=== PATIENT | female | born 1980 | race Caucasian/White ===

== ENCOUNTER 2019-01-12 22:13 | Emergency (ER) | payer SELFPAY ==
[~2019-01-12] VITALS: Ht 165 cm; Wt 86.0 kg
[2019-01-12] MEDS ORDERED: ASPIRIN 81 MG CHEW (CHILDREN'S ASA) PO ONE (22:30)
[2019-01-12 22:31] LABS: BASOPHILS % (AUTO) 0 % (0-10); EOSINOPHILS # (AUTO) 0.3 10^3/uL (0.0-0.3); EOSINOPHILS % (AUTO) 3 % (0-10); HEMATOCRIT 38 % (35-52); HEMOGLOBIN 13.1 G/DL (11.5-16.0); LYMPHOCYTES # (AUTO) 3.9 X 10^3 (1.0-4.0); LYMPHOCYTES % (AUTO) 36 % (12-44); MEAN CORPUSCULAR HEMOGLOBIN 31 PG (25-34); MEAN CORPUSCULAR HGB CONC 34 G/DL (32-36); MEAN CORPUSCULAR VOLUME 90 FL (80-99); MEAN PLATELET VOLUME 11.1 FL (7.4-10.4); MONOCYTES % (AUTO) 9 % (0-12); NEUTROPHILS # (AUTO) 5.7 X 10^3 (1.8-7.8); NEUTROPHILS % (AUTO) 52 % (42-75); PLATELET COUNT 330 10^3/uL (130-400); RED CELL DISTRIBUTION WIDTH 13.9 % (10.0-14.5); WHITE BLOOD COUNT 10.9 10^3/uL (4.3-11.0)
[2019-01-12] MEDS: NITROGLYCERIN 0.4 MG SL TABS BTL 25'S SL PRN ×2 (22:33→22:38)
--- NOTE | 2019-01-12 22:34 | ED Chest Pain ---
General Chief Complaint: Chest Pain Stated Complaint: CHEST PAINS Source: patient, other Exam Limitations: no limitations History of Present Illness Date Seen by Provider: Jan 12, 2019 Time Seen by Provider: 22:13 Initial Comments Patient presents to ER by private conveyance with her significant other and chief complaint of left chest pain starting about half hour prior to arrival. She had some pain in her left tooth that she took some ibuprofen and that's just proceeding her chest pain. Her pain radiates down her left shoulder with some numbness and tingling. No nausea sweats fever. No cough but she has had a recent upper respiratory tract infection with runny nose congestion. She has no previous history of coronary disease but she has a strong family history with her father having of a heart attack and her brother was 4 years old when he had a heart attack. Her last menstrual period was about 10 days ago. She has not taken anything else for it. She smokes cigarettes but has no known history of high blood pressure hyperlipidemia. She does not follow with a doctor routinely. Last time she saw was about 5-10 years ago. No history of COPD asthma or lung disease. She's not had acid reflux since he was a young kid. She did have to have a Lesia fundoplication has had no problems with it since. She rates the pain as a 6 or 7 out of 10. Allergies and Home Medications Allergies Coded Allergies: Penicillins (Verified Adverse Reaction, Unknown, vulva swelling, 01/12/19) Patient Home Medication List Home Medication List Reviewed: Yes Review of Systems Review of Systems Constitutional: No chills, No diaphoresis, No fever, No malaise EENTM: No Blurred Vision, No Double Vision Respiratory: Denies Cough, Denies Shortness of Air Cardiovascular: See HPI, Chest Pain; Denies Edema Gastrointestinal: Denies Abdomen Distended, Denies Abdominal Pain, Denies Constipated, Denies Diarrhea, Denies Nausea Genitourinary: Denies Burning, Denies Discharge Musculoskeletal: No back pain, No gout Skin: No change in color, No change in hair/nails Psychiatric/Neurological: Denies Anxiety, Denies Depressed Past Xzwteor-Hkojms-Yccgmh Hx Patient Social History Alcohol Use: Denies Use Recreational Drug Use: No Smoking Status: Current Everyday Smoker Type Used: Cigarettes Recent Foreign Travel: No Contact w/Someone Who Travel: No Physical Exam Vital Signs Vital Signs - First Documented Capillary Refill : Height, Weight, BMI Height: '" Weight: lbs. oz. kg; BMI Method: General Appearance: WD/WN, Anxious, Mild Distress HEENT: PERRL/EOMI, TMs Normal, Normal ENT Inspection, Pharynx Normal, Moist Mucous Membranes Neck: Full Range of Motion, Normal Inspection Respiratory: Chest Non Tender, Lungs Clear, Normal Breath Sounds, No Accessory Muscle Use, No Respiratory Distress Cardiovascular: Regular Rate, Rhythm, No Edema Gastrointestinal: Normal Bowel Sounds, No Organomegaly, Non Tender, Soft Extremity: Normal Capillary Refill, Normal Inspection, No Pedal Edema Neurologic/Psychiatric: Alert, Oriented x3 Skin: Normal Color, Warm/Dry Progress/Results/Core Measures Results/Orders Lab Results Laboratory Tests Test 01/12/19 22:20 01/12/19 23:02 01/13/19 01:10 Range/Units White Blood Count 10.9 4.3-11.0 10^3/uL Red Blood Count 4.25 L 4.35-5.85 10^6/uL Hemoglobin 13.1 11.5-16.0 G/DL Hematocrit 38 35-52 % Mean Corpuscular Volume 90 80-99 FL Mean Corpuscular Hemoglobin 31 25-34 PG Mean Corpuscular Hemoglobin Concent 34 32-36 G/DL Red Cell Distribution Width 13.9 10.0-14.5 % Platelet Count 330 130-400 10^3/uL Mean Platelet Volume 11.1 H 7.4-10.4 FL Neutrophils (%) (Auto) 52 42-75 % Lymphocytes (%) (Auto) 36 12-44 % Monocytes (%) (Auto) 9 0-12 % Eosinophils (%) (Auto) 3 0-10 % Basophils (%) (Auto) 0 0-10 % Neutrophils # (Auto) 5.7 1.8-7.8 X 10^3 Lymphocytes # (Auto) 3.9 1.0-4.0 X 10^3 Monocytes # (Auto) 1.0 0.0-1.0 X 10^3 Eosinophils # (Auto) 0.3 0.0-0.3 10^3/uL Basophils # (Auto) 0.0 0.0-0.1 10^3/uL Prothrombin Time 13.6 12.2-14.7 SEC INR Comment 1.0 0.8-1.4 Activated Partial Thromboplast Time 30 24-35 SEC Sodium Level 137 135-145 MMOL/L Potassium Level 3.3 L 3.6-5.0 MMOL/L Chloride Level 103 98-107 MMOL/L Carbon Dioxide Level 20 L 21-32 MMOL/L Anion Gap 14 5-14 MMOL/L Blood Urea Nitrogen 7 7-18 MG/DL Creatinine 1.05 0.60-1.30 MG/DL Estimat Glomerular Filtration Rate 58 BUN/Creatinine Ratio 7 Glucose Level 102 70-105 MG/DL Calcium Level 8.9 8.5-10.1 MG/DL Corrected Calcium 8.6 8.5-10.1 MG/DL Magnesium Level 1.9 1.6-2.4 MG/DL Total Bilirubin 0.3 0.1-1.0 MG/DL Aspartate Amino Transf (AST/SGOT) 18 5-34 U/L Alanine Aminotransferase (ALT/SGPT) 14 0-55 U/L Alkaline Phosphatase 63 40-136 U/L Myoglobin 23.8 10.0-92.0 NG/ML Troponin I < 0.028 < 0.028 <0.028 NG/ML Total Protein 7.7 6.4-8.2 GM/DL Albumin 4.4 3.2-4.5 GM/DL Urine Color YELLOW Urine Clarity SLIGHTLY CLOUDY Urine pH 6.5 5-9 Urine Specific [place] 1.010 L 1.016-1.022 Urine Protein NEGATIVE NEGATIVE Urine Glucose (UA) NEGATIVE NEGATIVE Urine Ketones NEGATIVE NEGATIVE Urine Nitrite NEGATIVE NEGATIVE Urine Bilirubin NEGATIVE NEGATIVE Urine Urobilinogen NORMAL NORMAL MG/DL Urine Leukocyte Esterase 2+ H NEGATIVE Urine RBC (Auto) 2+ H NEGATIVE Urine RBC RARE /HPF Urine WBC 2-5 /HPF Urine Squamous Epithelial Cells 2-5 /HPF Urine Crystals NONE /LPF Urine Bacteria TRACE /HPF Urine Casts NONE /LPF Urine Mucus NEGATIVE /LPF Urine Culture Indicated NO Urine Opiates Screen NEGATIVE NEGATIVE Urine Oxycodone Screen NEGATIVE NEGATIVE Urine Methadone Screen NEGATIVE NEGATIVE Urine Propoxyphene Screen NEGATIVE NEGATIVE Urine Barbiturates Screen NEGATIVE NEGATIVE Ur Tricyclic Antidepressants Screen NEGATIVE NEGATIVE Urine Phencyclidine Screen NEGATIVE NEGATIVE Urine Amphetamines Screen NEGATIVE NEGATIVE Urine Methamphetamines Screen NEGATIVE NEGATIVE Urine Benzodiazepines Screen NEGATIVE NEGATIVE Urine Cocaine Screen NEGATIVE NEGATIVE Urine Cannabinoids Screen POSITIVE H NEGATIVE My Orders Orders - KEYLA MIGUEL Ekg Tracing (01/12/19 22:17) Continuous Ekg Monitoring (01/12/19 22:17) Cbc With Automated Diff (01/12/19 22:25) Magnesium (01/12/19 22:25) Chest 1 View, Ap/Pa Only (01/12/19 22:25) Cardiac Profile 1 (01/12/19 22:25) Comprehensive Metabolic Panel (01/12/19 22:25) Myoglobin Serum (01/12/19 22:25) Protime With Inr (01/12/19 22:25) Partial Thromboplastin Time (01/12/19 22:25) O2 (01/12/19 22:25) Lipid Panel (01/13/19 06:00) Ed Iv/Invasive Line Start (01/12/19 22:25) Nitroglycerin 0.4 Mg Btl 25's (Nitrostat (01/12/19 22:30) Aspirin Chewable Tablet (Baby Aspirin Ch (01/12/19 22:30) Ua Culture If Indicated (01/12/19 22:55) Urine Bedside (01/12/19 22:55) Drug Screen Stat (Urine) (01/12/19 22:55) Lidocaine 2% Viscous 15 Ml (Xylocaine Vi (01/12/19 23:15) Famotidine Tablet (Pepcid Tablet) (01/12/19 23:13) Antacid Suspension (Mylanta Suspension (01/12/19 23:15) Troponin I (01/13/19 01:30) Medications Given in ED Current Medications Medications Dose Ordered Sig/Melissa Route Start Time Stop Time Status Last Admin Dose Admin Al Hydrox/Mg Hydrox/Simethicone 30 ml ONCE ONCE PO 01/12/19 23:15 01/12/19 23:16 DC 01/12/19 23:18 30 ML Aspirin 324 mg ONCE ONCE PO 01/12/19 22:30 01/12/19 22:31 DC 01/12/19 22:31 324 MG Lidocaine HCl 15 ml ONCE ONCE PO 01/12/19 23:15 01/12/19 23:16 DC 01/12/19 23:18 15 ML Nitroglycerin 0.4 mg UD PRN SL 01/12/19 22:30 01/12/19 22:38 0.4 MG Vital Signs/I&O 01/12/19 01/12/19 22:15 22:15 Temp 36.2 Pulse 91 Resp 18 B/P (MAP) 172/95 (120) O2 Delivery Room Air Room Air Progress Progress Note #1: Time: 22:48 Progress Note Well score 0 points. With a negative troponin should've a heart score 2 points. She responded to 2 doses of nitroglycerin by cutting her pain in half from 6 to 3 out of 10. Blood pressure stable. Cardiac workup. GERD or esophagitis possibility. Progress Note #2: Time: 23:14 Progress Note Patient is complaining now having more midline burning pain in her throat as wel l as her head is tingling. We'll trial a GI cocktail. Urine drug screen. Bedside urine test negative. Progress Note #3: Time: 01:45 Progress Note After the GI cocktail her discomfort went away. Her second troponin is negative. Plan to let her follow up today with cardiology. Initial ECG Impression Date: Jan 12, 2019 Initial ECG Impression Time: 22:18 Initial ECG Rate: 81 Initial ECG Rhythm: Normal Sinus Initial ECG Intervals: Normal Initial ECG Impression: Normal Initial ECG Comparisson: No Previous ECG Available Comment Sinus rhythm without ST elevation or depression. Diagnostic Imaging Diagonstic Imaging: Xray Plain Films/CT/US/NM/MRI: chest (1v) Comments No acute cardiopulmonary processes noted on one view chest x-ray. Reviewed: Reviewed by Me Consults : Consulting Physician: Lea CAZARES MD Consults Notes 1115: Discussed the case lab EKG imaging findings and presentation. He would like the patient followed up outpatient in his clinic form echocardiography if indicated if her second troponin is negative. Plan to repeat a 4 hour troponin at 0130. Departure Impression Primary Impression: Chest pain Qualified Codes: R07.9 - Chest pain, unspecified Disposition: 01 HOME, SELF-CARE Condition: Stable Departure-Patient Inst. Decision time for Depature: 01:45 Referrals: NO,LOCAL PHYSICIAN (PCP/Family) Primary Care Physician Patient Instructions: Chest Pain (DC) Add. Discharge Instructions: This morning call Dr. Cazares, cardiology and request an appointment. All discharge instructions reviewed with patient and/or family. Voiced understanding. Work/School Note: Work Release Form Date Seen in the Emergency Department: Jan 13, 2019 Return to Work: Jan 14, 2019 Restrictions: No Restrictions KEYLA MIGUEL Jan 12, 2019 22:33
[2019-01-12 22:38] LABS: PROTHROMBIN TIME PATIENT 13.6 SEC (12.2-14.7)
[2019-01-12 22:48] LABS: ALANINE AMINOTRANSFERASE 14 U/L (0-55); ALBUMIN 4.4 GM/DL (3.2-4.5); ALKALINE PHOSPHATASE 63 U/L (40-136); BILIRUBIN,TOTAL 0.3 MG/DL (0.1-1.0); BUN/CREATININE RATIO 7; CALCIUM 8.9 MG/DL (8.5-10.1); CARBON DIOXIDE 20 MMOL/L (21-32); CHLORIDE 103 MMOL/L (98-107); CREATININE SERUM 1.05 MG/DL (0.60-1.30); GFR ESTIMATED 58; GLUCOSE 102 MG/DL (70-105); MAGNESIUM 1.9 MG/DL (1.6-2.4); POTASSIUM 3.3 MMOL/L (3.6-5.0); SODIUM 137 MMOL/L (135-145); TOTAL PROTEIN 7.7 GM/DL (6.4-8.2)
[2019-01-12 23:13] LABS: BILIRUBIN,URINE NEGATIVE (NEGATIVE); CLARITY,URINE SLIGHTLY CLOUDY; COLOR,URINE YELLOW; GLUCOSE, URINE (UA) NEGATIVE (NEGATIVE); KETONES,URINE NEGATIVE (NEGATIVE); LEUKOCYTE ESTERASE ,URINE 2+ (NEGATIVE); NITRITE,URINE NEGATIVE (NEGATIVE); PH,URINE 6.5 (5-9); PROTEIN,URINE NEGATIVE (NEGATIVE); UROBILINOGEN,URINE NORMAL (NORMAL)
[2019-01-12] MEDS ORDERED: FAMOTIDINE 20 MG (PEPCID) TABLET PO STA (23:13)
[2019-01-12] MEDS ORDERED: LIDOCAINE 2% VISCOUS 15 ML UDC PO ONE (23:15)
[2019-01-12] MEDS ORDERED: ANTACID SUSP 30 ML UDC (MYLANTA) PO ONE (23:15)
[2019-01-12 23:19] LABS: BACTERIA,URINE TRACE /HPF; RBC,URINE RARE /HPF
[2019-01-12 23:23] LABS: AMPHETAMINE SCREEN, URINE NEGATIVE (NEGATIVE); BARBITURATE SCREEN URINE NEGATIVE (NEGATIVE); BENZODIAZEPINES SCREEN URINE NEGATIVE (NEGATIVE); CANNABINOID SCREEN, URINE POSITIVE (NEGATIVE); COCAINE SCREEN URINE NEGATIVE (NEGATIVE); METHADONE STAT NEGATIVE (NEGATIVE); METHAMPHETAMINE SCREEN URINE S NEGATIVE (NEGATIVE); OPIATE SCREEN URINE NEGATIVE (NEGATIVE); OXYCODONE STAT NEGATIVE (NEGATIVE); PROPOXYPHENE STAT NEGATIVE (NEGATIVE); TRICYCLIC ANTIDEPRESSANTS SCRE NEGATIVE (NEGATIVE)
[2019-01-13 01:55] VITALS: BP 127/64
--- NOTE | 2019-01-13 05:11 | Diagnostic Imaging Report ---
Patient History: Chest pain. Technique: Single frontal view of the chest Comparison: None FINDINGS: The lung volumes are normal. No focal consolidation is seen. No large pleural effusion or pneumothorax is seen. The cardiomediastinal silhouette is normal in size and contour. No acute osseous abnormality is seen. IMPRESSION: 1. No acute pleuroparenchymal process. Dictated by: Dictated on workstation # [id number]
== END 2019-01-13 01:57 | disposition home or self-care (01) ==
LOC: EDUNIT# 22:13 → ER 22:16
DX: R07.9 Chest pain, unspecified (principal); F17.210 Nicotine dependence, cigarettes, uncomplicated; Z88.0 Allergy status to penicillin
CPT/HCPCS: 36415; 71045; 80053; 80306; 81000; 83735; 83874; 84484; 84703; 85025; 85610; 85730; 93005

== ENCOUNTER 2019-01-15 20:53 | Emergency (ER) | payer SELFPAY ==
[~2019-01-15] VITALS: Ht 165.1 cm; Wt 84.1 kg
[2019-01-15] MEDS ORDERED: LIDOCAINE 2% VISCOUS 15 ML UDC PO ONE (21:15)
[2019-01-15] MEDS ORDERED: ANTACID SUSP 30 ML UDC (MYLANTA) PO ONE (21:15)
[2019-01-15] MEDS ORDERED: ASPIRIN 81 MG CHEW (CHILDREN'S ASA) PO ONE (21:15)
[2019-01-15 21:17] LABS: BASOPHILS % (AUTO) 0 % (0-10); EOSINOPHILS % (AUTO) 0 % (0-10); HEMATOCRIT 39 % (35-52); HEMOGLOBIN 13.4 G/DL (11.5-16.0); LYMPHOCYTES # (AUTO) 2.5 X 10^3 (1.0-4.0); LYMPHOCYTES % (AUTO) 22 % (12-44); MEAN CORPUSCULAR HEMOGLOBIN 31 PG (25-34); MEAN CORPUSCULAR HGB CONC 34 G/DL (32-36); MEAN CORPUSCULAR VOLUME 90 FL (80-99); MEAN PLATELET VOLUME 11.3 FL (7.4-10.4); MONOCYTES # (AUTO) 0.7 X 10^3 (0.0-1.0); MONOCYTES % (AUTO) 6 % (0-12); NEUTROPHILS % (AUTO) 71 % (42-75); PLATELET COUNT 307 10^3/uL (130-400); RED CELL DISTRIBUTION WIDTH 13.6 % (10.0-14.5); WHITE BLOOD COUNT 11.2 10^3/uL (4.3-11.0)
[2019-01-15 21:28] LABS: INR 1.1 (0.8-1.4); PROTHROMBIN TIME PATIENT 14.3 SEC (12.2-14.7)
[2019-01-15 21:34] LABS: ALANINE AMINOTRANSFERASE 13 U/L (0-55); ALBUMIN 4.6 GM/DL (3.2-4.5); ALKALINE PHOSPHATASE 53 U/L (40-136); BILIRUBIN,TOTAL 0.6 MG/DL (0.1-1.0); BUN/CREATININE RATIO 6; CARBON DIOXIDE 20 MMOL/L (21-32); CHLORIDE 103 MMOL/L (98-107); CREATININE SERUM 0.84 MG/DL (0.60-1.30); GFR ESTIMATED > 60; GLUCOSE 120 MG/DL (70-105); POTASSIUM 3.3 MMOL/L (3.6-5.0); SODIUM 134 MMOL/L (135-145); TOTAL PROTEIN 7.9 GM/DL (6.4-8.2)
--- NOTE | 2019-01-15 21:42 | ED Cardiac General ---
History of Present Illness General Chief Complaint: Chest Pain Stated Complaint: CHEST PAIN Nursing Triage Note: PT AMB TO RM 6 WITH COMPLAINT OF CHEST PAIN. STATES SHE HAS HAD INTERMITTENT CP SINCE SUNDAY. WAS SEEN IN ER 01-12-[address] CAZARES YESTERDAY. Source: patient Exam Limitations: no limitations History of Present Illness Date Seen by Provider: Jan 15, 2019 Time Seen by Provider: 21:40 Initial Comments ER with chest pain. She's had intermittent chest pain for the past few days, she states that she saw Dr. Cazares yesterday. She was given paperwork which mentioned heart failure, she then had immediate chest pain and tingling in the left arm which also caused some anxiety. She's had several episodes of feeling anxious and chest pain. She's been checking her blood pressure consistently found it to be 140s to 150s systolic. She is a smoker, family history of heart disease. Timing/Duration: changing over time Severity: moderate Location: central Prior CP/Workup: non-cardiac NTG SL FOUNDING PARTNER: No ASA po FOUNDING PARTNER: No Allergies and Home Medications Allergies Coded Allergies: Penicillins (Verified Adverse Reaction, Unknown, vulva swelling, 01/12/19) Home Medications Lorazepam 0.5 Mg Tablet, 0.5 MG PO BID PRN for ANXIETY Prescribed by: JUSTIN TAMEZ on 01/15/19 [id number] Patient Home Medication List Home Medication List Reviewed: Yes Review of Systems Review of Systems Constitutional: see HPI EENTM: No Symptoms Reported Respiratory: No Symptoms Reported Cardiovascular: See HPI, Chest Pain Gastrointestinal: See HPI Genitourinary: No Symptoms Reported Musculoskeletal: no symptoms reported Skin: no symptoms reported Psychiatric/Neurological: No Symptoms Reported Endocrine: No Symptoms Reported Hematologic/Lymphatic: No Symptoms Reported Past Wuwkuox-Feztvg-Albgtx Hx Patient Social History Alcohol Use: Denies Use Recreational Drug Use: Yes Smoking Status: Current Everyday Smoker Type Used: Cigarettes Recent Foreign Travel: No Contact w/Someone Who Travel: No Recent Infectious Disease Expo: No Recent Hopitalizations: No Physical Abuse: No Sexual Abuse: No Mistreated: No Fear: No Seasonal Allergies Seasonal Allergies: No Past Medical History Surgeries: Yes ("GERD SURGERY") Section Respiratory: No Cardiac: No Neurological: No Genitourinary: No Gastrointestinal: No Musculoskeletal: No Endocrine: No HEENT: No Cancer: No Psychosocial: No Integumentary: No Blood Disorders: No Physical Exam Vital Signs Vital Signs - First Documented 01/15/19 20:57 Temp 36.6 Pulse 80 Resp 12 B/P (MAP) 156/97 (116) Pulse Ox 99 O2 Delivery Room Air Capillary Refill : Less Than 3 Seconds Height, Weight, BMI Height: '" Weight: lbs. oz. kg; 30.00 BMI Method: General Appearance: No Apparent Distress, WD/WN, Anxious (states that the GI cocktail given did help with her pain, however she appears very anxious and admits that she is anxious) Neck: Full Range of Motion, Normal Inspection Respiratory: Lungs Clear, Normal Breath Sounds, No Accessory Muscle Use, No Respiratory Distress Cardiovascular: Regular Rate, Rhythm, Normal Peripheral Pulses Gastrointestinal: Normal Bowel Sounds, Non Tender, Soft Neurologic/Psychiatric: Alert, Oriented x3 Skin: Normal Color, Warm/Dry Progress/Results/Core Measures Results/Orders Lab Results Laboratory Tests Test 01/15/19 21:10 Range/Units White Blood Count 11.2 H 4.3-11.0 10^3/uL Red Blood Count 4.34 L 4.35-5.85 10^6/uL Hemoglobin 13.4 11.5-16.0 G/DL Hematocrit 39 35-52 % Mean Corpuscular Volume 90 80-99 FL Mean Corpuscular Hemoglobin 31 25-34 PG Mean Corpuscular Hemoglobin Concent 34 32-36 G/DL Red Cell Distribution Width 13.6 10.0-14.5 % Platelet Count 307 130-400 10^3/uL Mean Platelet Volume 11.3 H 7.4-10.4 FL Neutrophils (%) (Auto) 71 42-75 % Lymphocytes (%) (Auto) 22 12-44 % Monocytes (%) (Auto) 6 0-12 % Eosinophils (%) (Auto) 0 0-10 % Basophils (%) (Auto) 0 0-10 % Neutrophils # (Auto) 8.0 H 1.8-7.8 X 10^3 Lymphocytes # (Auto) 2.5 1.0-4.0 X 10^3 Monocytes # (Auto) 0.7 0.0-1.0 X 10^3 Eosinophils # (Auto) 0.0 0.0-0.3 10^3/uL Basophils # (Auto) 0.0 0.0-0.1 10^3/uL Prothrombin Time 14.3 12.2-14.7 SEC INR Comment 1.1 0.8-1.4 Activated Partial Thromboplast Time 29 24-35 SEC Sodium Level 134 L 135-145 MMOL/L Potassium Level 3.3 L 3.6-5.0 MMOL/L Chloride Level 103 98-107 MMOL/L Carbon Dioxide Level 20 L 21-32 MMOL/L Anion Gap 11 5-14 MMOL/L Blood Urea Nitrogen 5 L 7-18 MG/DL Creatinine 0.84 0.60-1.30 MG/DL Estimat Glomerular Filtration Rate > 60 BUN/Creatinine Ratio 6 Glucose Level 120 H 70-105 MG/DL Calcium Level 10.0 8.5-10.1 MG/DL Corrected Calcium 8.5-10.1 MG/DL Magnesium Level 2.0 1.6-2.4 MG/DL Total Bilirubin 0.6 0.1-1.0 MG/DL Aspartate Amino Transf (AST/SGOT) 17 5-34 U/L Alanine Aminotransferase (ALT/SGPT) 13 0-55 U/L Alkaline Phosphatase 53 40-136 U/L Myoglobin 29.9 10.0-92.0 NG/ML Troponin I < 0.028 <0.028 NG/ML Total Protein 7.9 6.4-8.2 GM/DL Albumin 4.6 H 3.2-4.5 GM/DL My Orders Orders - JUSTIN TAMEZ [employer] Cbc With Automated Diff (01/15/19 21:11) Magnesium (01/15/19 21:11) Chest 1 View, Ap/Pa Only (01/15/19 21:11) Ekg Tracing (01/15/19 21:11) Cardiac Profile 1 (01/15/19 21:11) Comprehensive Metabolic Panel (01/15/19 21:11) Myoglobin Serum (01/15/19 21:11) Protime With Inr (01/15/19 21:11) Partial Thromboplastin Time (01/15/19 21:11) O2 (01/15/19 21:11) Monitor-Rhythm Ecg Trace Only (01/15/19 21:11) Lipid Panel (01/16/19 06:00) Ed Iv/Invasive Line Start (01/15/19 21:11) Aspirin Chewable Tablet (Baby Aspirin Ch (01/15/19 21:15) Antacid Suspension (Mylanta Suspension (01/15/19 21:15) Lidocaine 2% Viscous 15 Ml (Xylocaine Vi (01/15/19 21:15) Lorazepam Injection (Ativan Injection) (01/15/19 21:45) Medications Given in ED Current Medications Medications Dose Ordered Sig/Melissa Route Start Time Stop Time Status Last Admin Dose Admin Al Hydrox/Mg Hydrox/Simethicone 30 ml ONCE ONCE PO 01/15/19 21:15 01/15/19 21:16 DC 01/15/19 21:20 30 ML Aspirin 324 mg ONCE ONCE PO 01/15/19 21:15 01/15/19 21:16 DC 01/15/19 21:20 324 MG Lidocaine HCl 15 ml ONCE ONCE PO 01/15/19 21:15 01/15/19 21:16 DC 01/15/19 21:20 15 ML Lorazepam 0.5 mg ONCE PRN IVP 01/15/19 21:45 01/15/19 21:52 0.5 MG Vital Signs/I&O 01/15/19 20:57 Temp 36.6 Pulse 80 Resp 12 B/P (MAP) 156/97 (116) Pulse Ox 99 O2 Delivery Room Air Blood Pressure Mean: 116 Departure Impression Primary Impression: Chest pain Qualified Codes: R07.9 - Chest pain, unspecified Additional Impression: Anxiety Disposition: 01 HOME, SELF-CARE Condition: Stable Departure-Patient Inst. Decision time for Depature: 21:56 Referrals: NO,LOCAL PHYSICIAN (PCP/Family) Primary Care Physician Patient Instructions: Anxiety, Adult (DC) Add. Discharge Instructions: 1. Return to ER for any concerns 2. Keep her appointment with Dr. Cazares 3. Take the anxiety medication as directed. All discharge instructions reviewed with patient and/or family. Voiced understanding. Scripts Lorazepam (Lorazepam) 0.5 Mg Tablet 0.5 MG PO BID PRN for ANXIETY, #10 TAB Prov: JUSTIN TAMEZ APRN 01/15/19 JUSTIN TAMEZ APRN Jan 15, 2019 21:42
[2019-01-15] MEDS ORDERED: LORazepam INJ 2 MG/ML (ATIVAN) VIAL IVP PRN (21:45)
[2019-01-15] MEDS ORDERED: LORA0.5T PO (21:57)
[2019-01-15 22:15] VITALS: BP 145/90
--- NOTE | 2019-01-15 22:25 | Diagnostic Imaging Report ---
INDICATION: Chest pain Upright portable AP view of the chest is obtained. Comparison is made to the study of 01/12/2019. FINDINGS: Heart size and pulmonary vascularity are within normal limits, and the lungs are clear, bilaterally. IMPRESSION: Unremarkable chest. Dictated by: Dictated on workstation # [id number]
== END 2019-01-15 22:19 | disposition home or self-care (01) ==
LOC: EDUNIT# 20:53 → ER 20:54
DX: R07.89 Other chest pain (principal); F41.9 Anxiety disorder, unspecified; K21.9 Gastro-esophageal reflux disease without esophagitis; F17.210 Nicotine dependence, cigarettes, uncomplicated; Z88.0 Allergy status to penicillin
CPT/HCPCS: 36415; 71045; 80053; 83735; 83874; 84484; 85025; 85610; 85730; 93005; 93041; 96374

== ENCOUNTER → 2019-02-06 | Outpatient (CLI) | payer OTHER ==
[~2019-02-06] VITALS: Ht 165 cm; Wt 84.0 kg
[~2019-02-06] MED LIST: LORA0.5T PO; REGADENOSON 0.4 MG/5 ML SYR (LEXISCAN) IV ONE
[2019-02-06] MEDS: CATHETER FLUSH 10 ML SYR IV PRN (08:33)
[2019-02-06] MEDS: REGADENOSON 0.4 MG/5 ML SYR (LEXISCAN) IV ONE (09:19)
[2019-02-06 15:36] VITALS: BP 127/81
--- NOTE | 2019-02-06 15:36 | Cardiology Stress Test Report ---
Stress Test Report Type of NM Stress Test: Test Type: LEXISCAN 0.4MG/5ML Date of Procedure/Referring: Date of Procedure: Feb 06, 2019 PCP Lea Cazares MD Admitting Physician [facility] Indications: Chest pain Baseline Heart Rate: 90 Baseline Blood Pressure: Blood Pressure Systolic: 127 Blood Pressure Diastolic: 81 Baseline EKG: Baseline EKG: sinus rhythm Summary & Conclusion: Summary: The patient was brought to the stress lab after informed consent was taken. Stress test was performed according to the Lexiscan protocol. 0.4 mg of IV Lexiscan was given. Low-grade exercise was performed. Baseline EKG showed sinus rhythm at 90 BPM. Initial blood pressure was 127/81 mmHg. Maximum heart rate was 99 bpm and blood pressure 158/89 mmHg. Patient did not have any chest pain, arrhythmias or ST segment changes during the stress test. 10.53 mCi of Myoview were given for rest imaging and 32.8 mCi of Myoview given for stress imaging. Transient ischemic dilatation score 1.08, EF 69 percent. Normal wall motion. Normal myocardial perfusion imaging during rest and stress. Conclusion: Pharmacological stress test was negative for ischemia. Normal LV function with no wall motion abnormalities. Normal myocardial perfusion imaging during rest and stress. Lea CAZARES MD Feb 06, 2019 15:36
== END ==
LOC: CARD 08:15
PROVIDERS: ATTEND Internal Medicine Interventional Cardiology
DX: I10 Essential (primary) hypertension (principal); E66.9 Obesity, unspecified; R07.2 Precordial pain; Z72.0 Tobacco use
CPT/HCPCS: 78452; 93017; 93306

== ENCOUNTER 2019-03-14 14:36 | Emergency (ER) | payer SELFPAY ==
[~2019-03-14] VITALS: Ht 165.1 cm; Wt 80.2 kg
[~2019-03-14 14:36] MED LIST changes: -REGADENOSON 0.4 MG/5 ML SYR (LEXISCAN) IV ONE
[2019-03-14 14:59] LABS: BILIRUBIN,URINE NEGATIVE (NEGATIVE); CLARITY,URINE CLEAR; COLOR,URINE YELLOW; GLUCOSE, URINE (UA) NEGATIVE (NEGATIVE); KETONES,URINE NEGATIVE (NEGATIVE); LEUKOCYTE ESTERASE ,URINE 1+ (NEGATIVE); NITRITE,URINE NEGATIVE (NEGATIVE); PH,URINE 6.5 (5-9); PROTEIN,URINE NEGATIVE (NEGATIVE)
[2019-03-14] MEDS ORDERED: ALPRAZolam 0.5 MG (XANAX) TAB PO SCH (15:00)
[2019-03-14 15:08] LABS: RBC,URINE 0-2 /HPF
[2019-03-14 15:09] LABS: BACTERIA,URINE FEW /HPF
--- NOTE | 2019-03-14 15:16 | ED General ---
General Chief Complaint: Allergic Reaction Stated Complaint: RASH;FEET NUMB;HEAD FEELS HEAVY Nursing Triage Note: STATES SHE IS HAVIN DAVY ALLERGIC REACTION TO A NEW MED "BUSPAR" SHTARTED LAST NOC. C/O REDNESS TO CHEST AND NECK, HEART RACING, FACE ITCHY LAST NIFGHT WITH COLD SWEAT AND TINGELING IN LIMBS LAST NIGHT. Nursing Sepsis Screen: No Definite Risk Source of Information: Patient Exam Limitations: No Limitations History of Present Illness Date Seen by Provider: Mar 14, 2019 Time Seen by Provider: 15:13 Initial Comments To ER with concerns of an allergic reaction. She started BuSpar 10 mg last night, she saw primary care today who advised her to reduce this to 5 mg twice a day as this may be the cause of her symptoms/side effects. She was prescribed Lexapro and Vistaril last week but refused to take it after reading the side effects profile. Her symptoms are flushing around her head and neck, tingling in her hands and feet Timing/Duration: 1-2 Days Severity: Moderate Allergies and Home Medications Allergies Coded Allergies: Penicillins (Verified Adverse Reaction, Unknown, vulva swelling, 01/12/19) Home Medications Lorazepam 0.5 Mg Tablet, 0.5 MG PO BID PRN for ANXIETY Prescribed by: JUSTIN TAMEZ on 01/15/19 8879 Patient Home Medication List Home Medication List Reviewed: Yes Review of Systems Review of Systems Constitutional: see HPI EENTM: see HPI Respiratory: no symptoms reported Cardiovascular: no symptoms reported Genitourinary: no symptoms reported Musculoskeletal: no symptoms reported Skin: no symptoms reported Psychiatric/Neurological: See HPI, Anxiety Past Dzchsmq-Yzspvr-Iuzskp Hx Patient Social History Alcohol Use: Denies Use Recreational Drug Use: No (MARIJUANA 3 WKS AGO BUT WAS MAKING HER ANXIETY WORSE AND STOPPED) Type Used: Cigarettes Recent Foreign Travel: No Contact w/Someone Who Travel: No Recent Infectious Disease Expo: No Recent Hopitalizations: No Physical Abuse: No Sexual Abuse: No Mistreated: No Fear: No Seasonal Allergies Seasonal Allergies: No Past Medical History Surgeries: Yes ("GERD SURGERY") Section Respiratory: No Cardiac: No Neurological: No : No Genitourinary: No Gastrointestinal: No Musculoskeletal: No Endocrine: No HEENT: No Cancer: No Psychosocial: No Integumentary: No Blood Disorders: No Physical Exam Vital Signs Vital Signs - First Documented 03/14/19 14:45 Temp 36.8 Pulse 77 Resp 20 B/P (MAP) 168/91 (116) Pulse Ox 99 Capillary Refill : Less Than 3 Seconds Height, Weight, BMI Height: '" Weight: lbs. oz. kg; 29.00 BMI Method: General Appearance: No Apparent Distress, WD/WN, Anxious, Other (she is pleasant cooperative but very anxious) Eyes: Bilateral Eye Normal Inspection, Bilateral Eye PERRL, Bilateral Eye EOMI HEENT: PERRL/EOMI, TMs Normal Respiratory: Lungs Clear, Normal Breath Sounds, No Accessory Muscle Use, No Respiratory Distress Cardiovascular: Regular Rate, Rhythm, Normal Peripheral Pulses Gastrointestinal: Normal Bowel Sounds, Non Tender, Soft Extremity: Normal Capillary Refill, Normal Inspection Neurologic/Psychiatric: Alert, Oriented x3 Skin: Normal Color, Warm/Dry Progress/Results/Core Measures Suspected Sepsis Recent Fever Within 48 Hours: No Infection Criteria Present: None New/Unexplained Altered Menta: No Sepsis Screen: No Definite Risk SIRS Temperature: Pulse: 77 Respiratory Rate: 20 Blood Pressure 168 /91 Mean: 116 Results/Orders Lab Results Laboratory Tests Test 03/14/19 14:52 Range/Units Urine Color YELLOW Urine Clarity CLEAR Urine pH 6.5 5-9 Urine Specific [place] <=1.005 1.016-1.022 Urine Protein NEGATIVE NEGATIVE Urine Glucose (UA) NEGATIVE NEGATIVE Urine Ketones NEGATIVE NEGATIVE Urine Nitrite NEGATIVE NEGATIVE Urine Bilirubin NEGATIVE NEGATIVE Urine Urobilinogen 0.2 < = 1.0 MG/DL Urine Leukocyte Esterase 1+ H NEGATIVE Urine RBC (Auto) TRACE-I NEGATIVE Urine RBC 0-2 /HPF Urine WBC 5-10 H /HPF Urine Squamous Epithelial Cells 5-10 /HPF Urine Crystals NONE /LPF Urine Bacteria FEW H /HPF Urine Casts NONE /LPF Urine Mucus NEGATIVE /LPF Urine Culture Indicated YES Urine Test NEGATIVE NEGATIVE My Orders Orders - JUSTIN TAMEZ APRN Alprazolam Tablet (Xanax Tablet) (03/14/19 15:00) Ua Culture If Indicated (03/14/19 14:54) Urine Bedside (03/14/19 14:54) Hcg,Qualitative Urine (03/14/19 14:54) Urine Culture (03/14/19 14:52) Vital Signs/I&O 03/14/19 14:45 Temp 36.8 Pulse 77 Resp 20 B/P (MAP) 168/91 (116) Pulse Ox 99 Capillary Refill : Less Than 3 Seconds Blood Pressure Mean: 116 POS Departure Impression Primary Impression: Anxiety Disposition: 01 HOME, SELF-CARE Condition: Stable Departure-Patient Inst. Decision time for Depature: 15:18 Referrals: [facility] (PCP/Family) Primary Care Physician Patient Instructions: Anxiety, Adult (DC) Add. Discharge Instructions: 1. Do as Dr. Branham suggested, reduce your BuSpar to 5 mg twice a day. If this fails to improve her symptoms after 1 week, then asked if you could start the Effexor in its place or in addition to it. In the meantime take the Valium twice daily as directed. Do not read the side effect profile of either the prescriptions that I've given you today. All discharge instructions reviewed with patient and/or family. Voiced understanding. Scripts Venlafaxine HCl (Effexor Xr) 75 Mg Cap.er.24h 75 MG PO DAILY, #30 CAP Prov: JUSTIN TAMEZ APRN 03/14/19 Diazepam (Valium) 5 Mg Tablet 5 MG PO BID, #10 TAB Prov: JUSTIN TAMEZ APRN 03/14/19 JUSTIN TAMEZ APRN Mar 14, 2019 15:16 POS
[2019-03-14] MEDS ORDERED: VENL75CA PO (15:20)
[2019-03-14] MEDS ORDERED: DIAZ5TAB PO (15:20)
[2019-03-14 15:25] VITALS: BP 168/91
== END 2019-03-14 15:25 | disposition home or self-care (01) ==
LOC: EDUNIT# 14:36 → ER 14:38
DX: F41.9 Anxiety disorder, unspecified (principal); Z88.0 Allergy status to penicillin
CPT/HCPCS: 81000; 84703; 87088; 99283

== ENCOUNTER 2021-08-01 20:54 | Emergency (ER) | payer SELFPAY ==
[~2021-08-01 20:54] MED LIST changes: +DIAZ5TAB PO; +VENL75CA PO
--- NOTE | 2021-08-01 21:29 | ED Abdominal Pain ---
General Chief Complaint: Abdominal/GI Problems Stated Complaint: STOMACH PAIN Source of Information: Patient History of Present Illness Date Seen by Provider: Aug 01, 2021 Time Seen by Provider: 21:15 Initial Comments PT ARRIVES VIA POV FROM HOME C/O EPIGASTRIC PAIN FOR OVER A YEAR, HAS BEEN A LITTLE WORSE SINCE Sunday07/30/21 STATES IT FEELS LIKE THERE IS A KNOT IN HER UPPER ABDOMEN AND IS SORE TO PUSH ON IT NO RADIATION OF PAIN NOTHING IMPROVES PAIN + NAUSEA, NO VOMITING. 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 PT IS UNEMPLOYED LMP--NOW. NORMAL. NO CONTROL HAS NOT TAKEN ANYTHING FOR SYMPTOMS AT ANY TIME HAS NOT SOUGHT CARE UNTIL TONRUSSELL SMOKES MARIJUANA ON A REGULAR BASIS PT HAS HAD PRIOR SURGERY FOR GERD/FUNDOPLICATION--DONE SEVERAL YEARS AGO BY DR. JOVEL PT HAS NOT BEEN TO A DR IN OVER 2 YEARS. PT HAS HAD COVID-19 VACCINE X 2, NO BOOSTER NO FLU VACCINE. NO KNOWN SICK CONTACTS PCP: [facility], [employer] [facility] Allergies and Home Medications Allergies Coded Allergies: Penicillins (Verified Adverse Reaction, Unknown, vulva swelling, 01/12/19) Patient Home Medication List Home Medication List Reviewed: Yes Diazepam (Valium) 5 Mg Tablet, 5 MG PO BID Prescribed by: JUSTIN TAMEZ on 03/14/19 152 Lorazepam (Lorazepam) 0.5 Mg Tablet, 0.5 MG PO BID PRN for ANXIETY Prescribed by: JUSTIN TAMEZ on 01/15/192156 Venlafaxine HCl (Effexor Xr) 75 Mg Cap.er.24h, 75 MG PO DAILY Prescribed by: JUSTIN TAMEZ on 03/14/19 1520 Review of Systems Review of Systems Constitutional: no symptoms reported Respiratory: No Symptoms Reported Cardiovascular: No Symptoms Reported Gastrointestinal: See HPI, Abdominal Pain, Diarrhea, Nausea; Denies Vomiting Genitourinary: No Symptoms Reported Musculoskeletal: no symptoms reported Skin: no symptoms reported Psychiatric/Neurological: No Symptoms Reported Endocrine: No Symptoms Reported Hematologic/Lymphatic: No Symptoms Reported Past Tetdjvm-Hrhyac-Rtewux Hx Patient Social History Tobacco Use?: Yes (SMOKES 1 - 1 1/2 PPD) Tobacco type used: Cigarettes Smoking Status: Current Everyday Smoker Substance use?: Yes Substance type: Marijuana Substance frequency: Daily Alcohol Use?: No Seasonal Allergies Seasonal Allergies: No Past Medical History Surgeries: Yes ("GERD SURGERY") Abdominal, Section Respiratory: No Cardiac: No Neurological: No Reproductive Disorders: No Female Reproductive Disorders: Denies Genitourinary: No Gastrointestinal: Yes Gastroesophageal Reflux Musculoskeletal: No Endocrine: No HEENT: No Cancer: No Psychosocial: Yes (SELF DC'D PSYCH MEDICATIONS > 1 YEAR AGO) Anxiety, Depression Integumentary: No Blood Disorders: No Physical Exam Vital Signs Vital Signs - First Documented 08/01/21 21:15 Temp 36.6 Pulse 98 Resp 20 B/P (MAP) 192/106 (134) Capillary Refill : Height/Weight/BMI Height: '" Weight: lbs. oz. kg; 29.00 BMI Method: General Appearance: WD/WN, no apparent distress, other (WALKS UPRIGHT AND MOVES WITHOUT DIFFICULTY. DOES NOT APPEAR ILL OR TO BE IN ANY DISCOMFORT OR DISTRESS) HEENT: No scleral icterus (R), No scleral icterus (L) Respiratory: normal breath sounds, no respiratory distress, no accessory muscle use Cardiovascular: regular rate, rhythm, no murmur Gastrointestinal: normal bowel sounds, soft, no organomegaly, no pulsatile mass; No distended, No guarding, No rebound; tenderness (MID EPIGASTRIC TENDERNESS--HAS APPROXIMATELY 1 CM AREA OF FIRMNESS/TENDERNESS, IN SUB Q TISSUES BELOW SCAR FROM PREVIOUS FUNDOPLICATION SURGERY. NO HERNIA NOTED. 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, no motor/sensory deficits, alert, normal mood/affect, oriented x 3 Skin: normal color, warm/dry Progress/Results/Core Measures Results/Orders Lab Results Laboratory Tests Test 08/01/21 21:35 08/01/21 21:47 Range/Units Urine Color YELLOW Urine Clarity CLEAR Urine pH 6.0 5-9 Urine Specific [place] 1.010 L 1.016-1.022 Urine Protein NEGATIVE NEGATIVE Urine Glucose (UA) NEGATIVE NEGATIVE Urine Ketones NEGATIVE NEGATIVE Urine Nitrite NEGATIVE NEGATIVE Urine Bilirubin NEGATIVE NEGATIVE Urine Urobilinogen 0.2 < = 1.0 MG/DL Urine Leukocyte Esterase NEGATIVE NEGATIVE Urine RBC (Auto) 3+ H NEGATIVE Urine RBC >100 H /HPF Urine WBC RARE /HPF Urine Squamous Epithelial Cells 0-2 /HPF Urine Crystals NONE /LPF Urine Bacteria TRACE /HPF Urine Casts NONE /LPF Urine Mucus SMALL H /LPF Urine Culture Indicated NO Urine Opiates Screen NEGATIVE NEGATIVE Urine Oxycodone Screen NEGATIVE NEGATIVE Urine Methadone Screen NEGATIVE NEGATIVE Urine Propoxyphene Screen NEGATIVE NEGATIVE Urine Barbiturates Screen NEGATIVE NEGATIVE Ur Tricyclic Antidepressants Screen NEGATIVE NEGATIVE Urine Phencyclidine Screen NEGATIVE NEGATIVE Urine Amphetamines Screen NEGATIVE NEGATIVE Urine Methamphetamines Screen NEGATIVE NEGATIVE Urine Benzodiazepines Screen NEGATIVE NEGATIVE Urine Cocaine Screen NEGATIVE NEGATIVE Urine Cannabinoids Screen POSITIVE H NEGATIVE White Blood Count 12.7 H 4.3-11.0 10^3/uL Red Blood Count 4.33 3.80-5.11 10^6/uL Hemoglobin 13.3 11.5-16.0 g/dL Hematocrit 39 35-52 % Mean Corpuscular Volume 91 80-99 fL Mean Corpuscular Hemoglobin 31 25-34 pg Mean Corpuscular Hemoglobin Concent 34 32-36 g/dL Red Cell Distribution Width 13.8 10.0-14.5 % Platelet Count 324 130-400 10^3/uL Mean Platelet Volume 11.2 9.0-12.2 fL Immature Granulocyte % (Auto) 0 % Neutrophils (%) (Auto) 75 42-75 % Lymphocytes (%) (Auto) 17 12-44 % Monocytes (%) (Auto) 8 0-12 % Eosinophils (%) (Auto) 0 0-10 % Basophils (%) (Auto) 1 0-10 % Neutrophils # (Auto) 9.5 H 1.8-7.8 10^3/uL Lymphocytes # (Auto) 2.2 1.0-4.0 10^3/uL Monocytes # (Auto) 1.0 0.0-1.0 10^3/uL Eosinophils # (Auto) 0.0 0.0-0.3 10^3/uL Basophils # (Auto) 0.1 0.0-0.1 10^3/uL Immature Granulocyte # (Auto) 0.0 0.0-0.1 10^3/uL Sodium Level 139 135-145 MMOL/L Potassium Level 3.0 L 3.6-5.0 MMOL/L Chloride Level 107 98-107 MMOL/L Carbon Dioxide Level 18 L 21-32 MMOL/L Anion Gap 14 5-14 MMOL/L Blood Urea Nitrogen 7 7-18 MG/DL Creatinine 0.83 0.60-1.30 MG/DL Estimat Glomerular Filtration Rate 91 BUN/Creatinine Ratio 8 Glucose Level 126 H 70-105 MG/DL Calcium Level 9.1 8.5-10.1 MG/DL Corrected Calcium 8.9 8.5-10.1 MG/DL Total Bilirubin 0.3 0.1-1.0 MG/DL Aspartate Amino Transf (AST/SGOT) 12 5-34 U/L Alanine Aminotransferase (ALT/SGPT) 14 0-55 U/L Alkaline Phosphatase 40 40-136 U/L Total Protein 7.5 6.4-8.2 GM/DL Albumin 4.2 3.2-4.5 GM/DL Amylase Level 29 25-125 U/L Lipase 8 8-78 U/L Serum Test, Qualitative NEGATIVE NEGATIVE My Orders Orders - JOEY GUILLROY DO Ed Iv/Invasive Line Start (08/01/21 21:22) Amylase (08/01/21 21:22) Cbc With Automated Diff (08/01/21 21:22) Comprehensive Metabolic Panel (08/01/21 21:22) Drug Screen Stat (Urine) (08/01/21 21:22) Hcg,Qualitative Serum (08/01/21 21:22) Lipase (08/01/21 21:22) Ua Culture If Indicated (08/01/21 21:22) Ct Abdomen/Pelvis W (08/01/21 22:11) Iohexol Injection (Omnipaque 350 Mg/Ml 1 (08/01/21 22:45) Received Contrast (Hold Metformin- Contr (08/01/21 22:45) Ns (Ivpb) (Sodium Chloride 0.9% Ivpb Bag (08/01/21 22:45) Medications Given in ED Current Medications Medications Dose Ordered Sig/Melissa Route Start Time Stop Time Status Last Admin Dose Admin Iohexol 100 ml ONCE ONCE IV 08/01/21 22:45 08/01/21 23:10 DC 08/01/21 22:41 100 ML Sodium Chloride 100 ml ONCE ONCE IV 08/01/21 22:45 08/01/21 23:10 DC 08/01/21 22:42 80 ML Vital Signs/I&O 08/01/21 08/01/21 21:15 23:15 Temp 36.6 36.6 Pulse 98 87 Resp 20 18 B/P (MAP) 192/106 (134) 142/85 Progress Progress Note : Progress Note UNEVENTFUL ER STAY PT DECLINES ANY PAIN MEDICATIONS DURING ER STAY Diagnostic Imaging Comments CT ABDOMEN/PELVIS--PER RADIOLOGIST REPORT AT 2255 FINDINGS: Lung bases are clear. The heart is normal in size. The liver appears normal. The pancreas is normal. The spleen appears normal. The adrenal glands are normal. The kidneys demonstrate no enhancing lesions and no hydronephrosis. The appendix is normal. The bowel loops are nondistended without obstruction. There is a very small fat-containing supraumbilical hernia with no bowel involvement. There is a very small periumbilical hernia with no bowel involvement. There are prominent follicles on the ovaries bilaterally. Minimal free fluid is seen in the pelvis which is likely physiologic. No acute osseous abnormality is seen. IMPRESSION: 1. Small supraumbilical and periumbilical fat-containing hernias with no bowel involvement. No other acute abnormality is seen in the abdomen or pelvis. Reviewed: Reviewed by Me Departure Impression Primary Impression: Supraumbilical hernia Additional Impression: Periumbilical hernia Disposition: 01 HOME, SELF-CARE Condition: Stable Departure-Patient Inst. Decision time for Depature: 22:58 Referrals: [facility] [place] Primary Care Physician PABLO GASCA DO Patient Instructions: Abdominal Hernia (DC), Umbilical Hernia, Adult Add. Discharge Instructions: TYLENOL AND MOTRIN NEEDED FOR PAIN FOLLOW UP WITH DR. GASCA, SURGEON, FOR FURTHER CARE--CALL IN THE MORNING TO SCHEDULE APPOINTMENT All discharge instructions reviewed with patient and/or family. Voiced understan sherman. JOEY GUILLORY DO Aug 01, 2021 21:29
[2021-08-01 21:41] LABS: BILIRUBIN,URINE NEGATIVE (NEGATIVE); CLARITY,URINE CLEAR; COLOR,URINE YELLOW; GLUCOSE, URINE (UA) NEGATIVE (NEGATIVE); KETONES,URINE NEGATIVE (NEGATIVE); LEUKOCYTE ESTERASE ,URINE NEGATIVE (NEGATIVE); NITRITE,URINE NEGATIVE (NEGATIVE); PROTEIN,URINE NEGATIVE (NEGATIVE)
[2021-08-01 21:54] LABS: BASOPHILS # (AUTO) 0.1 10^3/uL (0.0-0.1); BASOPHILS % (AUTO) 1 % (0-10); EOSINOPHILS % (AUTO) 0 % (0-10); HEMATOCRIT 39 % (35-52); HEMOGLOBIN 13.3 g/dL (11.5-16.0); LYMPHOCYTES # (AUTO) 2.2 10^3/uL (1.0-4.0); LYMPHOCYTES % (AUTO) 17 % (12-44); MEAN CORPUSCULAR HEMOGLOBIN 31 pg (25-34); MEAN CORPUSCULAR HGB CONC 34 g/dL (32-36); MEAN CORPUSCULAR VOLUME 91 fL (80-99); MEAN PLATELET VOLUME 11.2 fL (9.0-12.2); MONOCYTES % (AUTO) 8 % (0-12); NEUTROPHILS # (AUTO) 9.5 10^3/uL (1.8-7.8); NEUTROPHILS % (AUTO) 75 % (42-75); PLATELET COUNT 324 10^3/uL (130-400); WHITE BLOOD COUNT 12.7 10^3/uL (4.3-11.0)
[2021-08-01 22:00] LABS: AMPHETAMINE SCREEN, URINE NEGATIVE (NEGATIVE); BACTERIA,URINE TRACE /HPF; BARBITURATE SCREEN URINE NEGATIVE (NEGATIVE); BENZODIAZEPINES SCREEN URINE NEGATIVE (NEGATIVE); CANNABINOID SCREEN, URINE POSITIVE (NEGATIVE); COCAINE SCREEN URINE NEGATIVE (NEGATIVE); METHADONE STAT NEGATIVE (NEGATIVE); METHAMPHETAMINE SCREEN URINE S NEGATIVE (NEGATIVE); OPIATE SCREEN URINE NEGATIVE (NEGATIVE); OXYCODONE STAT NEGATIVE (NEGATIVE); PROPOXYPHENE STAT NEGATIVE (NEGATIVE); RBC,URINE >100 /HPF; SQUAMOUS EPITHELIAL CELL,UR 0-2 /HPF; TRICYCLIC ANTIDEPRESSANTS SCRE NEGATIVE (NEGATIVE); WBC,URINE RARE /HPF
[2021-08-01 22:04] LABS: ALBUMIN 4.2 GM/DL (3.2-4.5)
[2021-08-01 22:06] LABS: CALCIUM 9.1 MG/DL (8.5-10.1)
[2021-08-01 22:07] LABS: TOTAL PROTEIN 7.5 GM/DL (6.4-8.2)
[2021-08-01 22:09] LABS: BILIRUBIN,TOTAL 0.3 MG/DL (0.1-1.0)
[2021-08-01 22:11] LABS: CREATININE SERUM 0.83 MG/DL (0.60-1.30)
[2021-08-01] MEDS ORDERED: HOLD METFORMIN - RECEIVED CONTRAST 20 ML VIAL IV SCH (22:45)
[2021-08-01] MEDS ORDERED: NS 100 ML (IVPB) BAG IV ONE (22:45)
[2021-08-01] MEDS ORDERED: IOHEXOL 350 MG/ML 100 ML (OMNIPAQUE 350) VIAL IV ONE (22:45)
--- NOTE | 2021-08-01 22:52 | Diagnostic Imaging Report ---
PROCEDURE: CT abdomen and pelvis with contrast. TECHNIQUE: Multiple contiguous axial images were obtained through the abdomen and pelvis after administration of intravenous contrast. Auto Exposure Controls were utilized during the CT exam to meet ALARA standards for radiation dose reduction. All CT scans use one or more of the following dose optimizing techniques: automated exposure control, MA and/or KvP adjustment based on patient size and exam type or iterative reconstruction. INDICATION: Epigastric pain COMPARISON: None FINDINGS: Lung bases are clear. The heart is normal in size. The liver appears normal. The pancreas is normal. The spleen appears normal. The adrenal glands are normal. The kidneys demonstrate no enhancing lesions and no hydronephrosis. The appendix is normal. The bowel loops are nondistended without obstruction. There is a very small fat-containing supraumbilical hernia with no bowel involvement. There is a very small periumbilical hernia with no bowel involvement. There are prominent follicles on the ovaries bilaterally. Minimal free fluid is seen in the pelvis which is likely physiologic. No acute osseous abnormality is seen. IMPRESSION: 1. Small supraumbilical and periumbilical fat-containing hernias with no bowel involvement. No other acute abnormality is seen in the abdomen or pelvis. Dictated by: Dictated on workstation # [id number]
[2021-08-01 23:15] VITALS: BP 142/85
== END 2021-08-01 23:15 | disposition home or self-care (01) ==
LOC: EDUNIT# 20:54 → ER 20:56
DX: K42.9 Umbilical hernia without obstruction or gangrene (principal); F17.210 Nicotine dependence, cigarettes, uncomplicated
CPT/HCPCS: 36415; 74177; 80053; 80306; 81000; 82150; 83690; 84703; 85025

== ENCOUNTER 2021-09-28 09:31 | Emergency (ER) | payer SELFPAY ==
[~2021-09-28] VITALS: Ht 166 cm; Wt 86.1 kg
[2021-09-28 10:11] LABS: BASOPHILS # (AUTO) 0.1 10^3/uL (0.0-0.1); BASOPHILS % (AUTO) 1 % (0-10); EOSINOPHILS # (AUTO) 0.1 10^3/uL (0.0-0.3); EOSINOPHILS % (AUTO) 1 % (0-10); HEMATOCRIT 43 % (35-52); HEMOGLOBIN 14.8 g/dL (11.5-16.0); LYMPHOCYTES # (AUTO) 1.6 10^3/uL (1.0-4.0); LYMPHOCYTES % (AUTO) 19 % (12-44); MEAN CORPUSCULAR HEMOGLOBIN 31 pg (25-34); MEAN CORPUSCULAR HGB CONC 35 g/dL (32-36); MEAN CORPUSCULAR VOLUME 90 fL (80-99); MEAN PLATELET VOLUME 11.7 fL (9.0-12.2); MONOCYTES # (AUTO) 0.4 10^3/uL (0.0-1.0); MONOCYTES % (AUTO) 5 % (0-12); NEUTROPHILS # (AUTO) 6.2 10^3/uL (1.8-7.8); NEUTROPHILS % (AUTO) 75 % (42-75); PLATELET COUNT 357 10^3/uL (130-400); WHITE BLOOD COUNT 8.3 10^3/uL (4.3-11.0)
[2021-09-28 10:13] LABS: ALBUMIN 4.4 GM/DL (3.2-4.5)
[2021-09-28 10:14] LABS: POTASSIUM 3.7 MMOL/L (3.6-5.0)
[2021-09-28 10:15] LABS: CALCIUM 9.3 MG/DL (8.5-10.1)
[2021-09-28] MEDS ORDERED: hydrOXYzine (VISTARIL/ATARAX) 25 MG capsule/tablet PO ONE (10:15)
[2021-09-28] MEDS ORDERED: ASPIRIN 81 MG CHEW (CHILDREN'S ASA) PO ONE (10:15)
[2021-09-28 10:16] LABS: PROTHROMBIN TIME PATIENT 13.3 SEC (12.2-14.7)
[2021-09-28 10:18] LABS: BILIRUBIN,TOTAL 0.4 MG/DL (0.1-1.0)
--- NOTE | 2021-09-28 10:18 | ED General ---
General Chief Complaint: Chest Pain Stated Complaint: CP,ARM NUMBNESS, Nursing Triage Note: PT AMBULATORY TO ROOM. PT STATES SHE WOKE UP THIS AM WITH DIARRHEA AND CHEST PAIN. WHEN SHE WOULD LAY DOWN, THE CHEST PAIN GOT WORSE AND FELT VERY HEAVY. PT STATES SHE ALSO HAD A TINGLING SENSATION IN THE BACK OF HER HEAD AND LEFT SIDE OF THE NECK. PT STATES SHE HAS THE NUMBNESS DOWN HER LEFT ARM WELL. PT DOES MENTION THAT SHE HAS A HX OF ANXIETY AND PANIC ATTACKS AND HAS BEEN UNDER A LOT OF STRESS RECENTLY (BERNIE DRIVER) History of Present Illness Date Seen by Provider: Sep 28, 2021 Time Seen by Provider: 10:00 Initial Comments 41 year old female presents to the ED with chest pain and left arm/neck tingling. She woke up at 5:30am with diarrhea and began having chest pain upon lying down. Describes it as a heaviness and rates the pain as a 4/10. She reports a brief episode of tachycardia earlier this morning around the onset of symptoms that has since resolved. Shortly after having the chest pain she began to have tingling in her left arm and neck. She has a history of anxiety with panic attacks and reports that her symptoms today feel different than her normal panic attacks. She has been under increased stress in the last month with her mother recently passing away. She is not taking anything for anxiety currently due to not liking how it makes her feel and reports being unemployed for 3 years due to her anxiety. She has been having left ear pain recently and took 600mg I buprofen last night at around midnight for the pain. She has no known sick exposures. She had a full cardiac work-up by Dr. Cazares in 2019 for chest pain at that time that included cardiac stress test and echocardiogram that failed to find any cardiac abnormalites. She reports he cleared her from needing to see him again at that time. (BERNIE DRIVER) Allergies and Home Medications Allergies Coded Allergies: Penicillins (Verified Adverse Reaction, Unknown, vulva swelling, 01/12/19) Patient Home Medication List Diazepam (Valium) 5 Mg Tablet, 5 MG PO BID Prescribed by: JUSTIN TAMEZ on 03/14/19 1520 Lorazepam (Lorazepam) 0.5 Mg Tablet, 0.5 MG PO BID PRN for ANXIETY Prescribed by: JUSTIN TAMEZ on 01/15/19 473 Venlafaxine HCl (Effexor Xr) 75 Mg Cap.er.24h, 75 MG PO DAILY Prescribed by: JUSTIN TAMEZ on 03/14/19 1520 Review of Systems Review of Systems Constitutional: No chills, No fever EENTM: ear pain (left ear); No hearing loss, No vision loss, No throat pain Respiratory: No cough, No dyspnea on exertion, No short of breath Cardiovascular: chest pain, palpitations (Brief episode of feeling as though h er heart was racing earlier this morning); No vascular heart diseas Gastrointestinal: No abdominal pain, No constipation; diarrhea; No nausea, No vomiting Genitourinary: No decreased output, No discharge, No dysuria, No hematuria, No incontinence : No (partner has vasectomy) Musculoskeletal: No back pain, No muscle weakness Skin: No change in color, No lesions, No rash Psychiatric/Neurological: Anxiety, Tingling (left arm and neck) Hematologic/Lymphatic: No Symptoms Reported Immunological/Allergic: no symptoms reported (BERNIE DRIVER) Past Gbpomkm-Wziobg-Ozejyy Hx Patient Social History Tobacco Use?: Yes Tobacco type used: Cigarettes Smoking Status: Current Everyday Smoker Substance use?: Yes Substance type: Marijuana Substance frequency: Couple times a week Alcohol Use?: No (BERNIE DRIVER) Immunizations Up To Date Influenza Vaccine Up-to-Date: No; Not Current First/Initial COVID19 Vaccinat: 2020 Second COVID19 Vaccination Tha: 2020 (BERNIE DRIVER) Seasonal Allergies Seasonal Allergies: No (BERNIE DRIVER) Past Medical History Surgery/Hospitalization HX: SOCIAL ANXIETY Surgeries: Yes ("GERD SURGERY") Abdominal, Section Respiratory: No Cardiac: No Neurological: No Reproductive Disorders: No Female Reproductive Disorders: Denies Genitourinary: No Gastrointestinal: Yes Gastroesophageal Reflux Musculoskeletal: No Endocrine: No HEENT: No Cancer: No Psychosocial: Yes (SELF DC'D PSYCH MEDICATIONS > 1 YEAR AGO) Anxiety, Depression Integumentary: No Blood Disorders: No (BERNIE DRIVER) Physical Exam Vital Signs Vital Signs - First Documented 09/28/21 09:37 Temp 36.8 Pulse 79 Resp 17 B/P (MAP) 159/92 (114) Pulse Ox 99 (JO HODGE MD) Vital Signs Capillary Refill : (BERNIE DRIVER) Height, Weight, BMI Height: '" Weight: lbs. oz. kg; 31.00 BMI Method: General Appearance: WD/WN, Anxious, Obese Eyes: Bilateral Eye PERRL, Bilateral Eye EOMI HEENT: PERRL/EOMI, Pharynx Normal, Other (TM's ontact bilaterally w/out fluid accumulation. A couple of white areas present on left TM and several white areas on left TM. Hard to determine if scarring or growth. 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 Norm as Tested Skin: Normal Color, Warm/Dry Lymphatic: No Adenopathy (BERNIE DRIVER) Progress/Results/Core Measures Suspected Sepsis SIRS Temperature: Pulse: 79 Respiratory Rate: 17 Laboratory Tests 09/28/21 09:42: White Blood Count 8.3 Blood Pressure 159 /92 Mean: 114 Laboratory Tests 09/28/21 09:42: Creatinine 0.80, INR Comment 1.0, Platelet Count 357, Total Bilirubin 0.4 (BERNIE DRIVER) Results/Orders Lab Results Laboratory Tests Test 09/28/21 09:42 09/28/21 12:51 Range/Units White Blood Count 8.3 4.3-11.0 10^3/uL Red Blood Count 4.76 3.80-5.11 10^6/uL Hemoglobin 14.8 11.5-16.0 g/dL Hematocrit 43 35-52 % Mean Corpuscular Volume 90 80-99 fL Mean Corpuscular Hemoglobin 31 25-34 pg Mean Corpuscular Hemoglobin Concent 35 32-36 g/dL Red Cell Distribution Width 13.6 10.0-14.5 % Platelet Count 357 130-400 10^3/uL Mean Platelet Volume 11.7 9.0-12.2 fL Immature Granulocyte % (Auto) 1 % Neutrophils (%) (Auto) 75 42-75 % Lymphocytes (%) (Auto) 19 12-44 % Monocytes (%) (Auto) 5 0-12 % Eosinophils (%) (Auto) 1 0-10 % Basophils (%) (Auto) 1 0-10 % Neutrophils # (Auto) 6.2 1.8-7.8 10^3/uL Lymphocytes # (Auto) 1.6 1.0-4.0 10^3/uL Monocytes # (Auto) 0.4 0.0-1.0 10^3/uL Eosinophils # (Auto) 0.1 0.0-0.3 10^3/uL Basophils # (Auto) 0.1 0.0-0.1 10^3/uL Immature Granulocyte # (Auto) 0.0 0.0-0.1 10^3/uL Prothrombin Time 13.3 12.2-14.7 SEC INR Comment 1.0 0.8-1.4 Activated Partial Thromboplast Time 29 24-35 SEC Sodium Level 139 135-145 MMOL/L Potassium Level 3.7 3.6-5.0 MMOL/L Chloride Level 107 98-107 MMOL/L Carbon Dioxide Level 19 L 21-32 MMOL/L Anion Gap 13 5-14 MMOL/L Blood Urea Nitrogen 8 7-18 MG/DL Creatinine 0.80 0.60-1.30 MG/DL Estimat Glomerular Filtration Rate 94 BUN/Creatinine Ratio 10 Glucose Level 105 70-105 MG/DL Calcium Level 9.3 8.5-10.1 MG/DL Corrected Calcium 9.0 8.5-10.1 MG/DL Magnesium Level 2.2 1.6-2.4 MG/DL Total Bilirubin 0.4 0.1-1.0 MG/DL Aspartate Amino Transf (AST/SGOT) 24 5-34 U/L Alanine Aminotransferase (ALT/SGPT) 32 0-55 U/L Alkaline Phosphatase 50 40-136 U/L Myoglobin 34.3 10.0-92.0 NG/ML Troponin I < 0.028 <0.028 NG/ML Total Protein 8.0 6.4-8.2 GM/DL Albumin 4.4 3.2-4.5 GM/DL (JO HODGE MD) My Orders Orders - JO HODGE MD Ekg Tracing (09/28/21 09:36) Cbc With Automated Diff (09/28/21 10:04) Magnesium (09/28/21 10:04) Chest 1 View, Ap/Pa Only (09/28/21 10:04) Comprehensive Metabolic Panel (09/28/21 10:04) Myoglobin Serum (09/28/21 10:04) Protime With Inr (09/28/21 10:04) Partial Thromboplastin Time (09/28/21 10:04) O2 (09/28/21 10:04) Monitor-Rhythm Ecg Trace Only (09/28/21 10:04) Lipid Panel (09/29/21 06:00) Ed Iv/Invasive Line Start (09/28/21 10:04) Troponin I Rhea (09/28/21 10:04) Aspirin Chewable Tablet (Baby Aspirin Ch (09/28/21 10:15) Hydroxyzine Cap/Tab (Vistaril) (09/28/21 10:15) Troponin I Nilesh (09/28/21 11:55) (JO HODGE MD) Medications Given in ED Current Medications Medications Dose Ordered Sig/Melissa Route Start Time Stop Time Status Last Admin Dose Admin Aspirin 324 mg ONCE ONCE PO 09/28/21 10:15 09/28/21 10:16 DC 09/28/21 10:17 324 MG Hydroxyzine Pamoate 25 mg ONCE ONCE PO 09/28/21 10:15 09/28/21 10:16 DC 09/28/21 10:17 25 MG (JO HODGE MD) Vital Signs/I&O 09/28/21 09:37 Temp 36.8 Pulse 79 Resp 17 B/P (MAP) 159/92 (114) Pulse Ox 99 (JO HODGE MD) Vital Signs/I&O Capillary Refill : (BERNIE DRIVER) Blood Pressure Mean: 114 Progress Note : Progress Note 11:11 Chest x ray was unremarkable. No ischemic changes on EKG. Mildly hypocapnic (19) on blood work but otherwise unremarkable with no troponin elevation at this time. Will repeat troponin at noon. 324mg aspirin and 25mg hydroxyzine have been administered. She reports the medications caused her chest pain to resolve initially but she feels like it is coming back and she can feel herself becoming more anxious again. Vitals at this time: Heart rate of 63BPM, 98% O2 on room air, 151/90mmHg. (BERNIE DRIVER) Progress Note : Time: 13:16 Progress Note 41-year-old female with chief complaint of chest pain with extreme anxiety. She has minimal risk factors for coronary artery disease however due to age and smoking chest pain rule out was performed. Initial labs, EKG and chest x-ray are all reviewed and within normal limits/normal. Second troponin is pending at this time. Anticipate discharge to home with follow-up with [facility] or [facility]. Patient is informed of all of her results. All questions are sought and answered. (JO HODGE MD) ECG Initial ECG Impression Date: Sep 28, 2021 Initial ECG Impression Time: 09:43 Initial ECG Rate: 76 Initial ECG Rhythm: Normal Sinus Initial ECG Intervals: Normal Initial ECG Impression: Normal (JO HODGE MD) Diagnostic Imaging Diagonstic Imaging: Xray Plain Films/CT/US/NM/MRI: chest Comments Preliminary Chest X ray reading seen below: NAME: SAW MARR V [facility] REC#: [id number] PT STATUS: REG ER : 1980 PHYSICIAN: JO HODGE MD ADMIT DATE: 09/28/21/ER Draft Date of Exam:09/28/21 CHEST 1 VIEW, AP/PA ONLY INDICATION: Chest pain Frontal chest obtained at 10:42 a.m. and compared 01/15/2019. Heart and mediastinal silhouette are normal in appearance. The lungs are clear. There is no pneumothorax or pleural fluid. IMPRESSION: Negative chest. Dictated on workstation # [id number] Dict: 09/28/21 1054 Trans: 09/28/21 1055 CV [id number] Interpreted by: MADELYN ANDRE MD Electronically signed by: (BERNIE DRIVER) Departure Impression Primary Impression: Chest pain Qualified Codes: R07.9 - Chest pain, unspecified Additional Impression: Anxiety Disposition: 01 HOME, SELF-CARE Condition: Improved Departure-Patient Inst. Decision time for Depature: 13:14 (JO HODGE MD) Referrals: [facility] (PCP) Primary Care Physician JONATHAN POP (Family) Primary Care Physician Patient Instructions: Chest Pain That Is Not Caused by the Heart (DC), Anxiety, Adult ED Add. Discharge Instructions: Continue to take any daily medications that you have been previously prescribed. You should follow-up at critical access hospital or with [facility] to have further evaluation of your possible depression and definite anxiety. Today we have ruled out a heart attack. This does not mean that you do not have coronary artery disease. If you have any worsening symptoms with new concerns you should be reevaluated. Verification and Attestation of Medical Student E/M Service A medical student performed and documented this service in my presence. I reviewed and verified all information documented by the medical student and made modifications to such information, when appropriate. I personally performed the physical exam and medical decision making. Jo Hodge, Sep 28, 2021,13:16 (JO HODGE MD) Copy Copies To 1: ROGE MUNOZ CARSON Sep 28, 2021 10:17 JO HODGE MD Sep 28, 2021 13:18
[2021-09-28 10:20] LABS: CREATININE SERUM 0.8 MG/DL (0.60-1.30)
[2021-09-28 10:23] LABS: MAGNESIUM 2.2 MG/DL (1.6-2.4)
--- NOTE | 2021-09-28 10:56 | Diagnostic Imaging Report ---
INDICATION: Chest pain Frontal chest obtained at 10:42 a.m. and compared 01/15/2019. Heart and mediastinal silhouette are normal in appearance. The lungs are clear. There is no pneumothorax or pleural fluid. IMPRESSION: Negative chest. Dictated by: Dictated on workstation # [id number]
[2021-09-28 14:00] VITALS: BP 134/104
== END 2021-09-28 14:00 | disposition home or self-care (01) ==
LOC: EDUNIT# 09:31 → ER 09:33
DX: F41.9 Anxiety disorder, unspecified (principal); R07.9 Chest pain, unspecified; E66.9 Obesity, unspecified; F17.210 Nicotine dependence, cigarettes, uncomplicated; Z68.31 Body mass index [BMI] 31.0-31.9, adult; Z28.311 Partially vaccinated for COVID-19
CPT/HCPCS: 36415; 71045; 80053; 83735; 83874; 84484; 85025; 85610; 85730; 93005; 93041

== ENCOUNTER → 2021-12-09 | Outpatient (CLI) | payer OTHER ==
--- NOTE | 2021-12-09 10:44 | Diagnostic Imaging Report ---
PROCEDURE: US Gallbladder. TECHNIQUE: Multiple real-time grayscale images were obtained over the right upper quadrant in various projections. INDICATION: Epigastric pain. The liver is normal in size at 15 cm. Portal vein is patent and shows normal direction of flow. No discrete liver mass is identified. Gallbladder is without stones or sludge. There is no wall thickening or biliary ductal dilatation. The pancreas is unremarkable. Aorta is nonaneurysmal. IVC is patent. Right kidney is without calculi or hydronephrosis. There is no ascites. IMPRESSION: Unremarkable gallbladder ultrasound. Dictated by: Dictated on workstation # [id number]
== END ==
LOC: RAD 08:30
PROVIDERS: ATTEND Surgery
DX: R10.13 Epigastric pain (principal)
CPT/HCPCS: 76705

== ENCOUNTER → 2021-12-22 | Outpatient (CLI) | payer OTHER ==
[~2021-12-22] MED LIST changes: +CATHETER FLUSH 10 ML SYR IVP PRN
--- NOTE | 2021-12-22 16:02 | Diagnostic Imaging Report ---
INDICATION: Epigastric pain Hepatobiliary scan 5.33 mCi of technetium 99m Choletec was given for the scan. A 8 ounces of Ensure were given orally at 60 minutes. There is homogeneous uptake of isotope throughout the liver. The cystic duct and common duct are both patent. The gallbladder ejection fraction was 29%. IMPRESSION: Normal hepatobiliary scan Dictated by: Dictated on workstation # [id number]
== END ==
LOC: CARD 12:00
PROVIDERS: ATTEND Surgery
DX: R10.13 Epigastric pain (principal)
CPT/HCPCS: 78227; A9537

== ENCOUNTER 2022-01-12 05:34 | Outpatient (CLI) | payer SELFPAY ==
[~2022-01-12] VITALS: Ht 167.7 cm; Wt 84.0 kg
[~2022-01-12 05:34] MED LIST changes: -CATHETER FLUSH 10 ML SYR IVP PRN
[2022-01-12] MEDS ORDERED: ACET325T38 PO (11:20)
== END 2022-01-13 12:47 | disposition home or self-care (01) ==
LOC: PREOP 05:34
PROVIDERS: ATTEND Surgery
DX: Z01.818 Encounter for other preprocedural examination (principal)

== ENCOUNTER 2022-01-19 08:17 | Day surgery (SDC) | payer OTHER ==
[~2022-01-19] VITALS: Ht 165.1 cm; Wt 84.0 kg
[2022-01-19] VITALS (13 sets, daily range): BP systolic 133–177; BP diastolic 83–120
[~2022-01-19 08:17] MED LIST changes: +ACET325T38 PO
--- NOTE | 2022-01-19 08:51 | Progress Note-Pre Operative ---
Pre-Operative Progress Note Date of Available H&P: Dec 28, 2021 Date H&P Reviewed: Jan 19, 2022 Time H&P Reviewed: 08:49 History & Physical: H&P Reviewed, Patient Examed, No changes noted Pre-Operative Diagnosis: biliary dyskinesia, incisional hernia DOUG LIPSCOMB DO Jan 19, 2022 08:50
[2022-01-19] MEDS ORDERED: SCOPOLAMINE 1.5 MG (TRANSDERM-SCOP) PATCH TD ONE (09:00)
[2022-01-19] MEDS ORDERED: FAMOTIDINE 20MG/2ML IV (PEPCID) IVP ONE (09:00)
[2022-01-19] MEDS ORDERED: MIDAZOLAM 2 MG/2 ML (VERSED) VIAL IVP ONE (09:00)
[2022-01-19] MEDS ORDERED: ONDANSETRON 4 MG/2 ML (SDV) Z0FRAN IVP ONE (09:00)
[2022-01-19] MEDS ORDERED: SEVOFLURANE (ULTANE) 15 ML INHAL SOLN ONE ×2 (09:05→11:33)
[2022-01-19] MEDS ORDERED: ROCURONIUM 10 MG/ML 5 ML SYRINGE IV ONE (09:05)
[2022-01-19] MEDS ORDERED: LIDOCAINE PF 2% 5 ML (XYLOCAINE) VIAL ONE (09:05)
[2022-01-19] MEDS ORDERED: proPOfol 200 MG/20 ML (DIPRIVAN) VIAL IV ONE (09:05)
[2022-01-19] MEDS ORDERED: fentaNYL INJ 100 MCG/2 ML AMP ONE (09:05)
[2022-01-19] MEDS ORDERED: LIDOCAINE/EPI 2% 1:200,00 (XYLOCAINE) 20 ML VIAL ONE (09:05)
[2022-01-19] MEDS ORDERED: MIDAZOLAM 2 MG/2 ML (VERSED) VIAL ONE (09:06)
[2022-01-19] MEDS ORDERED: CLINDAMYCIN 600 MG/50 ML IVPB 50 ML IV ONE (09:30)
[2022-01-19] MEDS: LACTATED RINGERS 1,000 ML IV PRN ×2 (10:02→11:00)
[2022-01-19] MEDS ORDERED: GLYCOPYRROLATE 0.2 MG/ML (ROBINUL) 2 ML VIAL ONE (11:38)
[2022-01-19] MEDS ORDERED: NEOSTIGMINE (BLOXIVERZ ) 1 MG/1ML 10 ML VIAL ONE (11:38)
[2022-01-19] MEDS ORDERED: TRM50T PO (11:46)
[2022-01-19] MEDS ORDERED: DOCU-143 PO (11:46)
--- NOTE | 2022-01-19 11:49 | Discharge Inst-Simple/Standard ---
Discharge Inst-Standard Discharge Medications New, Converted or Re-Newed RX: Transmitted to Pharmacy Patient Instructions/Follow Up Plan of Care/Instructions/FU: 2 weeks Deanna Activity as Tolerated: No Discharge Diet: Regular Diet Other Inst to Patient Follow up Appt: Make appointment for 2-3 week. Instructions: No lifting greater than 10 pounds. No strenuous activity. May shower in 24 hours, no tub bath or soaking. Use incentive spirometer at home as directed. No Smoking Skin/Wound Care: You have special glue over your incision that will fall off on it's own. Symptoms to Report: Appetite Changes, Extremity Discoloration, Numbness/Tingling, Swelling Increased , Bleeding Excessive, Eyesight Changes, Pain Increased, Urine Color Change, Constipation(Persistent), Fever over 101 degree F, Pain/Pressure in chest, Urinating Difficulty, Cough Up/Vomit Blood, Heart Beat Irreg/Pounding, Pain/Pressure in jaw, Vaginal Bleeding Increase, Cramps in feet or legs, Lightheadedness, Pain/Pressure in shoulder, Diarrhea(Persistent), Memory Changes Suddenly, Questions/Concerns, Weight gain consecutive days, Dizziness/Fainting, Nausea/Vomiting, Shortness of Breath, Weight gain over 2 pounds If questions or concerns contact your physician Or seek help at emergency department. DOUG LIPSCOMB DO Jan 19, 2022 11:49
[2022-01-19] MEDS ORDERED: morphine INJ 10 MG/ML 1ML (SYR OR VIAL) ONE (11:50)
--- NOTE | 2022-01-19 11:52 | Anesthesia-General Post-Op ---
General Patient Condition Mental Status/LOC: Same as Preop Cardiovascular: Satisfactory Nausea/Vomiting: Absent Respiratory: Satisfactory Pain: Controlled Complications: Absent Post Op Complications Complications None Follow Up Care/Instructions Patient Instructions None needed. Anesthesia/Patient Condition Patient Condition Patient is doing well, no complaints, stable vital signs, no apparent adverse anesthesia problems. No complications reported per nursing. LINCOLN STANFORD CRNA Jan 19, 2022 11:52
[2022-01-19] MEDS ORDERED: ONDANSETRON 4 MG/2 ML (SDV) Z0FRAN IVP PRN (12:00)
[2022-01-19] MEDS ORDERED: morphine INJ 10 MG/ML 1ML (SYR OR VIAL) IVP ONE (12:00)
[2022-01-19] MEDS ORDERED: MEPERIDINE (DEMEROL) INJ 50 MG/ML IVP ONE (12:00)
[2022-01-19] MEDS ORDERED: PROMETHAZINE INJ 25 MG/ML (PHENERGAN) AMP IVP ONE (12:00)
[2022-01-19] MEDS ORDERED: HYDROmorphone 2 MG/ML VIAL (DILAUDID) IV ONE (12:00)
[2022-01-19] MEDS ORDERED: HYDROmorphone 2 MG/ML VIAL (DILAUDID) ONE (12:05)
[2022-01-19] MEDS ORDERED: ceFAZolin INJECTION 1,000 MG VIAL IV ONE (12:30)
--- NOTE | 2022-01-19 16:52 | Diagnostic Imaging Report ---
FLUOROSCOPY UP TO 1 HOUR INDICATION: Intraoperative cholangiogram after cholecystectomy. COMPARISON: None available. FINDINGS AND IMPRESSION: A total dose of 9.99 mGy was utilized. Images show cannulization of the residual cystic duct with contrast opacifying the nondilated common bile duct. There are no filling defects present. Contrast spills into the second portion of the duodenum. Please see procedure report for complete details. Dictated by: Dictated on workstation # [id number]
--- NOTE | 2022-01-20 01:45 | OPERATIVE REPORT ---
DATE OF SERVICE: 01/19/2022 PREOPERATIVE DIAGNOSIS: Biliary dyskinesia, incisional hernia. POSTOPERATIVE DIAGNOSIS: Biliary dyskinesia and incarcerated incisional hernia. PROCEDURE: Laparoscopic cholecystectomy with intraoperative cholangiogram and laparoscopic incarcerated incisional hernia repair using echo 4-1/2 inch mesh. SURGEON: Doug Huerta DO. FISHERIES MANAGER: Dr. Burger, assisted in retraction, dissection and closure. ANESTHESIA: General. ESTIMATED BLOOD LOSS: Minimal. COMPLICATIONS: None. INDICATIONS: The patient is a 42-year-old female with incisional hernia and also abdominal pain, which radiological workup consistent with biliary dyskinesia. She understands risks and benefits of procedures and wished to proceed. Consent was signed in the chart. DESCRIPTION OF PROCEDURE: The patient was taken to the operating suite. She was prepped and draped in sterile fashion. Timeout was performed. Local anesthetic was infiltrated above the umbilicus. An 11-blade scalpel was used to make a small skin incision. Cautery was used to dissect down to the fascia, which was then scored and opened. 0 Vicryl was placed in a [id number] fashion for closure at the end of the case. A dunbar trocar was inserted. Pneumoperitoneum was achieved. Under direct visualization of the laparoscope, a 5 mm trocar was placed in the subxiphoid region and two 5 mm trocars were placed in the right upper quadrant. Gallbladder was grasped, elevated. Cystic duct and cystic artery were then dissected out. Clips were placed on distal portion of the cystic duct and proximal and distal portion of the cystic artery. The duct was then partially transected. Arrow catheter was inserted. Cholangiogram was performed. There were no filling defects. Contrast made its way into the duodenum without difficulty. Catheter was removed. Clips were placed on distal in the proximal portion of the cystic duct. The duct and the artery were then transected. Hook cautery used to dissect the gallbladder from the gallbladder fossa achieving hemostasis. It was placed in an Endobag and removed through the 12 mm trocar site. The falciform was then taken down. The incisional hernia defect was present or visualized. A significant amount of fat was incarcerated up into the hernia from the falciform, which was able to be dissected free bluntly and with cautery to remove it. The falciform was then taken up towards room in a caudal fashion. Echo Ventralight 4-1/2-inch mesh was then inserted and grasped through a stab incision at the site of the hernia. It was brought out, the balloon was inflated. A SecureStrap Tacker was used to make circumferential tacks. The balloon was removed and an inner crown was created as well. The trocars were then removed. The 0 Vicryl was placed at the beginning of the case. The skin was then closed using 4-0 Monocryl in subcuticular fashion. The abdomen was then washed and dried, sterile bandages were applied, Skin Affix was placed over the incisions. The patient tolerated the procedure well without any complications. She was taken to recovery room in stable condition. Job ID: [id number] DocumentID: [id number] Dictated Date: 01/19/2022 18:03:04 Barrel Cap Setter Date: 01/20/2022 01:45:02 Dictated By: DOUG HUERTA DO
== END 2022-01-19 14:39 | disposition home or self-care (01) ==
LOC: SDC 08:17
PROVIDERS: ATTEND Surgery
DX: K82.8 Other specified diseases of gallbladder (principal); K43.0 Incisional hernia with obstruction, without gangrene; K81.1 Chronic cholecystitis; F17.210 Nicotine dependence, cigarettes, uncomplicated; E66.9 Obesity, unspecified; K42.9 Umbilical hernia without obstruction or gangrene; Z68.30 Body mass index [BMI] 30.0-30.9, adult
CPT/HCPCS: 47563; 49655; 76000; 84703; 87081; 94664; C1781